=== PATIENT | male | born 1940 | race Caucasian/White ===

== ENCOUNTER 2020-02-26 15:20 | Observation (INO) | payer OTHER, MEDICAID, SELFPAY ==
[2020-02-26 15:30] VITALS: BP 142/81; PULSE 78; RESP 16; TEMP 36.8; O2SAT 95; BMI 23.1
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
--- NOTE | 2020-02-26 16:31 | ED_ITS ---
HPI - Psych General Chief Complaint: Psychiatric Symptoms Stated Complaint: Dementia Time Seen by Provider: 02/26/20 16:27 Source: patient and police Mode of arrival: other (Police) Limitations: other (Dementia) History of Present Illness HPI Narrative: Much of the HPI was provided by the BREANNA form filled out by pilar thorne. It is reported that the patient lives at the local assisted living facility. The police were called when the individual was found outside on the road waving at cars that are passing by and yelling and drivers. Further information was provided again by police who stated that they were told by the patient's living facility that he has been aggressive. Concerns at potentially his dementia has been worsening. There were reports made by individuals that the patient did state that he was trying to kill himself. There were statements the patient was trying to jump in front of cars in order to do this. At the time my evaluation patient denied any suicidal ideation. He reported no complai nts. Related Data Allergies Allergy/AdvReac Type Severity Reaction Status Date / Time No Known Drug Allergies Allergy Verified 02/26/20 15:45 Review of Systems Constitutional Constitutional: Denies fever(s) Cardiovascular Cardiovascular: Denies chest pain and Denies dyspnea Respiratory Respiratory: Denies dyspnea Gastrointestinal Gastrointestinal: Denies abdominal pain Musculoskeletal Musculoskeletal: Denies arthralgias Integumentary/Breasts Skin/Breast: Denies rash Neurologic Neurologic: Reports behavioral changes (Reported by police/living facility) Psychiatric Psychiatric: Reports behavioral changes (Reported by police/living facility), Denies homicidal ideation and Denies suicidal ideation Patient History Medical History Dementia (Acute) Social History Smoking Status: Former smoker Smoking Status: Former smoker alcohol intake frequency: 0-2 drinks per day Substance Use Type: does not use Exam Initial Vital Signs Initial Vital Signs: Vital Signs Temperature 98.2 F 02/26/20 15:30 Pulse Rate 78 02/26/20 15:30 Respiratory Rate 16 02/26/20 15:30 Blood Pressure 142/81 H 02/26/20 15:30 Pulse Oximetry 95 02/26/20 15:30 Const General: cooperative, comfortable, well developed and well groomed HENGA Head: normal to inspection and normocephalic Resp Effort & Inspection: normal respiratory effort Auscultation: clear to auscultation bilaterally Cardio Rate: regular rate Rhythm: regular rhythm GI Inspection: non-distended Palpation: soft Skin Lesions: no lesions Rashes: no rashes Neuro General: patient alert and patient awake Speech: speech normal Gait: normal gait Motor: no movement abnormalities noted Extrem General: normal to inspection, capillary refill normal and No edema Psych Appearance: well kempt Speech and Movement: speech clear Mood: not manic, not labile and No angry Affect: normal affect Attitude: cooperative Thought Content: no homicidality and suicidality Scores GCS Blanca coma scale eye opening: Spontaneous [place] coma scale verbal response: Orientated (Oriented to person, place, time, date, year) Blanca coma scale motor response: Obey commands [place] coma scale total score: 15 Course Orders Ordered: ED Orders 02/26/20 16:19 [place] [facility] [place] Stat 02/26/20 16:32 Consult to [facility] Complaint Investigator Stat EKG-12 Lead Stat 02/26/20 16:33 CT head/brain wo con Stat 02/26/20 16:42 Urinalysis and Microscopic Stat Urine Drug Screen, Rapid Stat 02/26/20 17:01 Acetaminophen Stat Ammonia (NH3) Stat Complete Blood Count AUTO DIFF Stat Comprehensive Metabolic Panel Stat Ethanol (ETOH) Stat Lipase Stat Salicylate Stat Thyroid Stimulating Hormone Stat Vital Signs Vital signs: Vital Signs - 8 hr 02/26/20 15:30 Temperature 98.2 F Pulse Rate 78 Respiratory Rate 16 Blood Pressure 142/81 H Pulse Oximetry 95 MDM - Psych Lab Data Attestation: I reviewed the patient's lab results. Result diagrams: 02/26/20 17:01 02/26/20 17:01 Labs: Lab Results 02/26/20 02/26/20 02/26/20 Range/Units 16:42 16:42 17:01 WBC 9.9 (4.5-11.0) X10^3/uL RBC 4.69 (4.5-5.9) X10^6/uL Hgb 14.2 (13.5-17.5) g/dL Hct 42.0 (41-53) % MCV 89.6 (80-100) fL MCH 30.3 (26-34) PG MCHC 33.8 (30-36) % RDW 13.6 (11.6-14.8) % Plt Count 246 (150-400) X10^3/uL Neut % (Auto) 73.5 (50-75) % Lymph % (Auto) 19.3 L (25-40) % [place] % (Auto) 6.1 (3-14) % Eos % (Auto) 0.6 L (2-4) % Baso % (Auto) 0.5 (0-2) % Neut # (Auto) 7300 H (5528-8555) /uL Lymph # (Auto) 1900 (5511-6810) /uL [place] # (Auto) 600 (0-900) /uL Eos # (Auto) 100 (0-450) /uL Baso # (Auto) 100 (0-100) /uL Sodium (137-145) mmol/L Potassium (3.4-5.1) mmol/L Chloride (98-107) mmol/L Carbon Dioxide (22-32) mmol/L BUN (9-20) mg/dL Creatinine (0.66-1.25) mg/dL Estimated GFR (>60) mL/min BUN/Creatinine Ratio (6-22) Glucose (80-110) mg/dL Calcium (8.4-10.2) mg/dL Total Bilirubin (0.2-1.3) mg/dL AST (17-59) IU/L ALT (<50) IU/L Alkaline Phosphatase (38-126) U/L Ammonia (9-30) umol/L Total Protein (6.3-8.2) g/dL Albumin (3.5-5.0) g/dL Globulin (1.7-4.1) g/dL Albumin/Globulin Ratio (1.0-2.8) Lipase (23-300) U/L TSH (0.47-4.68) uIU/mL Urine Color Yellow Urine Appearance Clear Urine pH 5.0 (4.5-8.0) Ur Specific [place] 1.020 (1.000-1.035) Urine Protein Negative (Negative) Urine Glucose (UA) Negative (Negative) g/dL Urine Ketones Negative (NEGATIVE) Urine Occult Blood 1+ H (Negative) Urine Nitrate Negative (Negative) Urine Bilirubin Negative (NEGATIVE) Urine Urobilinogen 0.2 (0.2) E.U./dL Ur Leukocyte Esterase Negative (NEGATIVE) Salicylates (<20) mg/dL U Opiates 300ng/mL cut Negative (Negative) Ur Oxycodone Screen Negative (Negative) Urine Methadone Screen Negative (Negative) Acetaminophen (10-30) ug/mL Ur Barbiturates Screen Negative (Negative) U Tricyclic Antidepress Negative (Negative) Ur Phencyclidine Scrn Negative (Negative) Ur Amphetamines Screen Negative (Negative) U Methamphetamines Scrn Negative (Negative) Ur MDMA Scrn (Ecstasy) Negative (Negative) U Benzodiazepines Scrn Negative (Negative) Urine Cocaine Screen Negative (Negative) U Marijuana (THC) Screen Negative (Negative) Ethyl Alcohol ( - 10) mg/dL 02/26/20 02/26/20 02/26/20 Range/Units 17:01 17:01 17:01 WBC (4.5-11.0) X10^3/uL RBC (4.5-5.9) X10^6/uL Hgb (13.5-17.5) g/dL Hct (41-53) % MCV (80-100) fL MCH (26-34) PG MCHC (30-36) % RDW (11.6-14.8) % Plt Count (150-400) X10^3/uL Neut % (Auto) (50-75) % Lymph % (Auto) (25-40) % [place] % (Auto) (3-14) % Eos % (Auto) (2-4) % Baso % (Auto) (0-2) % Neut # (Auto) (9642-8870) /uL Lymph # (Auto) (7320-9311) /uL [place] # (Auto) (0-900) /uL Eos # (Auto) (0-450) /uL Baso # (Auto) (0-100) /uL Sodium 138 (137-145) mmol/L Potassium 4.0 (3.4-5.1) mmol/L Chloride 101 (98-107) mmol/L Carbon Dioxide 29 (22-32) mmol/L BUN 23 H (9-20) mg/dL Creatinine 1.08 (0.66-1.25) mg/dL Estimated GFR > 60.0 (>60) mL/min BUN/Creatinine Ratio 21.3 (6-22) Glucose 98 (80-110) mg/dL Calcium 9.7 (8.4-10.2) mg/dL Total Bilirubin 0.8 (0.2-1.3) mg/dL AST 30 (17-59) IU/L ALT 12 (<50) IU/L Alkaline Phosphatase 99 (38-126) U/L Ammonia < 9 L (9-30) umol/L Total Protein 8.5 H (6.3-8.2) g/dL Albumin 4.5 (3.5-5.0) g/dL Globulin 4.0 (1.7-4.1) g/dL Albumin/Globulin Ratio 1.1 (1.0-2.8) Lipase 181 (23-300) U/L TSH 2.93 (0.47-4.68) uIU/mL Urine Color Urine Appearance Urine pH (4.5-8.0) Ur Specific [place] (1.000-1.035) Urine Protein (Negative) Urine Glucose (UA) (Negative) g/dL Urine Ketones (NEGATIVE) Urine Occult Blood (Negative) Urine Nitrate (Negative) Urine Bilirubin (NEGATIVE) Urine Urobilinogen (0.2) E.U./dL Ur Leukocyte Esterase (NEGATIVE) Salicylates < 1.0 (<20) mg/dL U Opiates 300ng/mL cut (Negative) Ur Oxycodone Screen (Negative) Urine Methadone Screen (Negative) Acetaminophen < 10 L (10-30) ug/mL Ur Barbiturates Screen (Negative) U Tricyclic Antidepress (Negative) Ur Phencyclidine Scrn (Negative) Ur Amphetamines Screen (Negative) U Methamphetamines Scrn (Negative) Ur MDMA Scrn (Ecstasy) (Negative) U Benzodiazepines Scrn (Negative) Urine Cocaine Screen (Negative) U Marijuana (THC) Screen (Negative) Ethyl Alcohol < 10 ( - 10) mg/dL Imaging Data CT scan - head: Radiologist's Impression: [address] [address] [address] Scan Report Signed Patient: Scott LeonMR#: [id number] : 1940Acct:[id number] Age/Sex: 79 / MDate of Service: 02/26/20 Loc: ED Accession Number: [id number] Procedure: CT head/brain wo con Ordering Provider: Dawit Francisco D.O. PROCEDURE: CT HEAD/BRAIN WO CON INDICATIONS: Altered mental status TECHNIQUE: Noncontrast 4.5 mm thick angled axial sections acquired from the foramen magnum to the vertex, with coronal and sagittal reformats. For radiation dose reduction, the following was used: automated exposure control, adjustment of mA and/or kV according to patient size. COMPARISON: Outside Film, CT, CT HEAD WITHOUT CONTRAST, 02/23/2016, 15:04. FINDINGS: Image quality: Excellent. CSF spaces: Basal cisterns are patent. No extra-axial fluid collections. The ventricles are symmetric in size and shape. Brain: No intracranial bleeds or masses. There is cerebral volume loss for age, with resultant ventricular and sulcal prominence. There are periventricular and deep white matter chronic small vessel ischemic changes. There is intracranial internal carotid artery atherosclerosis. Skull and face: Calvarium and visualized facial bones appear intact, without suspicious lesions. Sinuses: Visualized sinuses and mastoids are clear. IMPRESSION: No CT evidence of acute intracranial pathology. No significant changes from previous study. Dictated by: Ti Moon M.D. on 02/26/2020 at 17:03 Approved by: Ti Moon M.D. on 02/26/2020 at 17:04 ECG Data Attestation: I personally reviewed and interpreted this ECG as follows: Prior ECG tracings: not available for review Interpretation: Sinus rhythm Normal axis Ventricular rate is 76 Normal QRS Normal QTC No ST T wave changes MDM Narrative Medical decision making narrative: Patient has no signs of trauma, head CT is unremarkable, EKG is unremarkable, not clinically intoxicated, patient does have a GCS of 15. He is oriented to person place year in his date. He states he has a little unsure as to why he is here in the emergency department. He does state that he does not know where he currently lives. He states he has not lived in ?my house? for ?many years? although he did know the address to his prior home. There is no signs of trauma. Patient denies suicidality. A PROTECTION AGENT consult was placed to help with the situation. Care turned over to night pro vider at change of shift to follow up.
[2020-02-26 17:10] LABS: Add Manual Diff / Slide Review NO; Basophils Absolute Auto 100 /uL (0-100); Basophils Percent Auto 0.5 % (0-2); Eosinophils Absolute Auto 100 /uL (0-450); Eosinophils Percent Auto 0.6 % (2-4); Hemoglobin 14.2 g/dL (13.5-17.5); Lymphocytes Absolute Auto 1900 /uL (1100-4500); Lymphocytes Percent Auto 19.3 % (25-40); Mean Corpuscular HGB Conc 33.8 % (30-36); Mean Corpuscular Hemoglobin 30.3 PG (26-34); Mean Corpuscular Volume 89.6 fL (80-100); Monocytes Absolute Auto 600 /uL (0-900); Monocytes Percent Auto 6.1 % (3-14); Neutrophils Absolute Auto 7300 /uL (1500-7000); Neutrophils Percent Auto 73.5 % (50-75); Platelet Count 246 X10^3/uL (150-400); Red Blood Cell Count 4.69 X10^6/uL (4.5-5.9); Red Cell Distribution Width 13.6 % (11.6-14.8); White Blood Cell Count 9.9 X10^3/uL (4.5-11.0)
[2020-02-26 17:18] LABS: Ur Creatinine Normal (Normal); Ur Specific Gravity Normal (Normal); Urine pH Normal (Normal)
[2020-02-26 17:19] LABS: UR Morphine/Opiate cutoff 300 Negative (Negative); Urine Amphetamines Negative (Negative); Urine Barbiturates Negative (Negative); Urine Benzodiazepines Negative (Negative); Urine Cocaine Negative (Negative); Urine MDMA Negative (Negative); Urine Methadone Negative (Negative); Urine Methamphetamines Negative (Negative); Urine Oxycodone Negative (Negative); Urine Phencyclidine Negative (Negative); Urine Tetrahydrocannabinol Negative (Negative); Urine Tricyclic Antidepressant Negative (Negative)
[2020-02-26 17:22] LABS: Acetaminophen < 10 ug/mL (10-30); Alanine Aminotransferase 12 IU/L (<50); Albumin 4.5 g/dL (3.5-5.0); Albumin Globulin Ratio 1.1 (1.0-2.8); Alkaline Phosphatase 99 U/L (38-126); Ammonia (NH3) < 9 umol/L (9-30); Aspartate Aminotransferase 30 IU/L (17-59); BUN Creatinine Ratio 21.3 (6-22); Bilirubin Total 0.8 mg/dL (0.2-1.3); Blood Urea Nitrogen 23 mg/dL (9-20); Calcium 9.7 mg/dL (8.4-10.2); Carbon Dioxide 29 mmol/L (22-32); Chloride 101 mmol/L (98-107); Estimated Glomerular Filt Rate > 60.0 mL/min (>60); Ethanol (ETOH) < 10 mg/dL; Glucose 98 mg/dL (80-110); HEMOLYSIS < 15 (0-50); Lipase 181 U/L (23-300); Salicylate < 1.0 mg/dL (<20); Sodium 138 mmol/L (137-145); Total Protein 8.5 g/dL (6.3-8.2)
[2020-02-26 17:59] LABS: Thyroid Stimulating Hormone 2.93 uIU/mL (0.47-4.68)
[2020-02-26 18:33] LABS: Bacteria Urine None Seen
[2020-02-26 18:35] LABS: Appearance Urine UA CLEAR; Bilirubin Urine UA NEGATIVE (NEGATIVE); Color Urine UA YELLOW; Glucose Urine UA NEGATIVE (Negative); Ketones Urine UA NEGATIVE (NEGATIVE); Leukocyte Esterase Urine UA NEGATIVE (NEGATIVE); Nitrite Urine UA NEGATIVE (Negative); Occult Blood Urine UA 1+ (Negative); Protein Urine UA NEGATIVE (Negative); Urobilinogen Urine UA 0.2 E.U./dL (0.2)
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
[2020-02-26 18:43] LABS: Culture Indicated Urine Cult Not Indicated; RBC Urine 0-1/HPF (0-5/HPF); Squamous Epithelial Cell Urine 0-1 /HPF (0-5/HPF); WBC Urine 0-1/HPF (0-5/HPF)
[2020-02-26] MEDS: haloperidoL 1 MG TABLET 2 MG PO (19:25)
[2020-02-26 21:12] VITALS: BMI 23.1
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
[2020-02-27 01:03] VITALS: BP 167/77; PULSE 75; RESP 16; TEMP 36.4; O2SAT 99
--- NOTE | 2020-02-27 04:08 | PC.NURSE ---
Patient has remained 1:1 observation this shift due to elopement risk. Patient gets up independently to go to the bathroom. Was pleasant and cooperative , stated he thinks he will go back to sleep. Thanked me for helping over him up. Denies pain.
[2020-02-27 07:48] VITALS: BP 139/72; PULSE 69; RESP 16; TEMP 37.1; O2SAT 97
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
[2020-02-27] MEDS: MEMANTINE HCL 5 MG TABLET 10 MG PO ×2 (08:14→21:35)
[2020-02-27] MEDS: ATORVASTATIN 20 MG TABLET 40 MG PO (08:15)
[2020-02-27 10:15] VITALS: BMI 23.1
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
[2020-02-27 18:44] VITALS: BP 170/90; PULSE 72; RESP 16; TEMP 36.5; O2SAT 98
--- NOTE | 2020-02-27 22:07 | PC.NURSE ---
18:30- This MACHINE CLEANER walked 1:1 with patient throughout the hallways for almost 2 hours. Pt would occasionally sit, but would then want to walk stating, I walk 3 miles everyday. 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 0 - Pt was given a pudding and fruit cup. Also given a Pepsi at patient request. Pt stated, I don't want to be left alone. He further asked multiple times where he was and what would happen to him. Pt became sad and cried a few times. This MACHINE CLEANER reassured the patient that he was at [facility] and that he was safe and that doctors and nurses were all here to help him. This MACHINE CLEANER notified RN of increased sadness and confusion. 2209- Pt ambulated himself from the bedside chair to the bed. Pt was given a warm blanket. Pt is currently sleeping. Bed alarm is on, lights are off and this MACHINE CLEANER is outside his door as a 1:1 with visual contact.
--- NOTE | 2020-02-27 22:53 | PC.NURSE ---
2229- Patient remains cooperative but is very forgetful. Patient does not understand why he is in the hospital and has no recall of how he got here. Patient is impulsive and labile emotionally. He will spontaneously start crying but then forget why. Patient taking po well but does not drink water. Patient prefers coffee or pepsi. Will monitor.
[2020-02-28 00:05] VITALS: BP 178/85; PULSE 65; RESP 16; TEMP 36; O2SAT 99
[2020-02-28 07:20] VITALS: BP 124/76; PULSE 72; RESP 16; TEMP 36.7; O2SAT 97
--- NOTE | 2020-02-28 07:56 | PC.NURSE ---
Pt has 1:1 observation. Pt has gotten up and walked to the door multiple times to talk to me about concerns on feeling dizzy. I talked to him about eating some food or drinking some juice or sitting up a little bit to help with the dizzy feeling. He stated that he is not hungry and he just wants to lay down and doesn't really feel like talking or having me near by but wants to let me know that he still feels dizzy and will keep telling me that till he feels better.
--- NOTE | 2020-02-28 08:11 | P.PN_ITS ---
Subjective Subjective Date Patient Seen: 02/28/20 Interval history: Mr. Scott Leon is an 79-year-old male with a medical history only significant for early onset Alzheimer's who was brought in by [employer] police after attempting to jump in front of a car. Patient was in the process of being admitted to [facility], and became confused about what was happening and stated that he did this to get away from people at the time. He does not currently remember yesterday's events. Discussions with the patient's are often cyclical about his son possibly taking his Ollie. He has significant short term memory impairment. He currently denies any complaints. There is no acute medical issue for his behavior that has been found other than his progressive dementia. Patient is currently admitted pending placement. Exam Vital Signs (past 8 hours): - 02/28/20 07:20 Temperature 98.0 F Pulse Rate 72 Respiratory Rate 16 Blood Pressure 124/76 Pulse Oximetry 97 Oxygen Delivery Method Room Air Oxygen Flow Rate 0 Narrative Exam Narrative: GENERAL APPEARANCE: Disheveled somewhat unkempt elderly male who is adequately nourished and in no acute distress. HEENT: Normocephalic, PERRLA, conjunctiva clear, case tract bilaterally, no nystagmus, no rhinorrhea, mucous membranes are moist and pink. NECK/THYROID: neck supple, no JVD, trachea midline. SKIN: [place], warm and dry. HEART: regular rate and rhythm, S1-S2, no murmur, no rubs or gallops, brisk capillary refill, no edema LUNGS: clear to auscultation bilaterally, no coarseness crackles or wheezing, moist nonproductive cough present. CHEST: Symmetrical movement, no accessory muscle use, good tidal volume. ABDOMEN: Soft, no distention, no abdominal tenderness, no organomegaly, active bowel tones. BACK: Thoracic kyphosis, nontender to palpation, no CVA tenderness on percussion. EXTREMITIES: Bruising to the dorsum of the right hand, moves all extremities, strength is 5/5 and symmetrical, no deformities or joint effusions. NEUROLOGIC: AAO, point to person only, no focal neurologic deficits, cranial nerves II-XII grossly intact, sensation intact to light touch, hearing grossly normal to speech. PSYCH: Severely impaired memory, poor insight, thought is circular, mildly anxious, restless. Objective Labs Result Diagrams: 02/26/20 17:01 02/26/20 17:01 Assessment & Plan Assessment & Plan narrative: This is an 79-year-old male patient who is unable to return to his prior care setting due to the severity of his disability. Social work has been working with Jovani Salazartman, the patient's POA regarding placement. He is unable to come pick the patient up. Patient is admitted for safety due to grave debility. 1. Early onset Alzheimer's dementia, chronic, present on admission, active. -the patient has severely impaired memory circular thinking is confused and disoriented. -apparently patient's was previous his caregiver and she is presently in the hospital in [place]. -the patient is too disabled to return to his previous care setting at [facility]. -social sciences professor has consulted is been working to identify resources in placement and had been waiting communication from the patient's POA. -no factor resources have been found the patient is admitted to the hospital for supportive environment to prevent injury and harm. -will continue memantine 10 mg twice daily. -appreciate social work interventions. Will likely need COVID-19 testing once placement has been found. 2. Hyperlipidemia, chronic, stable. -will continue atorvastatin 40 mg daily. The patient is admitted to the hospital as observation status due to the severity of his disability and risk to safety and prevent harm. He is medically stable for discharge once placement is found.
[2020-02-28] MEDS: ATORVASTATIN 20 MG TABLET 40 MG PO (08:56)
[2020-02-28] MEDS: MEMANTINE HCL 5 MG TABLET 10 MG PO ×2 (08:57→20:49)
--- NOTE | 2020-02-28 11:27 | PC.NURSE ---
Addendum entered by Corinne Hough R.N. 02/28/20 14:48: delivered by a neighbor, THERESE WEBB, a warm winter coat and his ghada- she chose not to visit pt Addendum entered by Corinne Hough R.N. 02/28/20 14:04: pt c/o dizziness but stable on feet during ambulation- wishing to go home Original Note: PT CONTINUES TO BE CONFUSED AND REPEATING HIS STORIES OVER AND OVER- HE IS EASILY REDIRECTED AND CAN FEED AND TOILET HIMSELF- NO IV LINES AT THIS TIME AND AWAITING SECURE AND SAFE DISPOSTION
--- NOTE | 2020-02-28 15:36 | CM.DPC ---
DCP Memory Care Placement Per MD, pt remains medically stable for discharge once safe LTC placement plan secured. Per RN, pt remains mostly independent with ambulation and most ADL's but needs regular reminders and cueing for hygiene and self care and has 1:1 due to pt's risk for wandering as pt likes to walk the halls. Pt calm and cooperative without behaviors but at times becomes tearful and repetitive. Pt has excellent remote computer terminal operator memory but very poor short term memory. [facility] called pt's [facility] Community CM Victoria Velasquez [phone] and updated on pt status and his needs and Victoria states she plans to update pt's assessment to show his higher level of need now that pt needs higher level of care than Assisted Living. Victoria plans to complete by this evening so that its ready to fax to Memory Care Units once [facility] finds facilities with openings willing to review. The following Medicaid Memory Care Units attempted yesterday and today: [facility] [place]- [facility] beds [facility] P# [phone]- [facility] beds [facility] P# [phone]- No beds [facility] P# [phone]- Had to [facility] [place] P# [phone]- No beds [facility]: no beds and waitlist already [facility]: [facility] [place]: only private pay [place] [facility]: Memory Care full [address] [place]: not taking new admits [facility] [place]: no beds, full [facility]: no beds, full [facility]: no beds, full [facility]: left msg [facility]: [phone] phone has openings but requests HCS assessment and daily rate and some hospital clinicals to review. Faxed hospital clinicals to #[phone] and Victoria will send HCS assess tonight. [facility] [place] [facility]: [phone] phone admissions Marie has openings and willing to review if pt is approved for Specialty pay ($109 plus hospital add on pay). [facility] faxed clinicals to fax #[phone] to review and confirmed with Victoria that she will send request for pt to be approved for Specialty Dementia Unit and does not anticipate this will be a problem and will fax [facility] assess tonight. Pt's neighbor friend Beth Howell ([phone]) arrived to bring some of pt's belongings and his Ollie as pt is an avid reader. Beth confirms that there is a No-contact order between pt and his son (as son being investigated for taking advantage of vulnerable pt and spouse) and that Guardian Jovani Rivera is pt's brother inlaw and guardian for spouse. Plan: SW to follow for [facility] and [facility] at [facility] to review pt after Victoria from [facility] faxes updated [facility] assessment with daily rate to those two facilities. DIPTI Lin
[2020-02-28 16:45] VITALS: BP 162/86; PULSE 72; RESP 18; TEMP 36.5; O2SAT 100
--- NOTE | 2020-02-28 17:20 | PC.NURSE ---
Addendum entered by Allison Dumont R.N. 02/28/20 21:08: 2100- Patient is getting more agitated and insistent on leaving. Patient harder to redirect, is having some pressured speech and combative speech. Will monitor. Original Note: 1700- Patient very emotionally labile today. Since the beginning of Shanta shift he has been mostly crying. Dr. Lara aware. Patient has very poor recall and at times is agitated. Patient can be easily redirected. Patient turned off the room monitor as he has very low alarm tolerance. No bed alarm or chair alarm as these increase his fear and agitation. Will monitor.
[2020-02-28] MEDS: MELATONIN 3 MG TABLET 6 MG PO (20:49)
[2020-02-28] MEDS: QUETIAPINE 25 MG TABLET 50 MG PO (21:30)
--- NOTE | 2020-02-28 22:55 | PC.NURSE ---
2014- Pt became more agitated and kept saying, I want to leave. Pt was unsteady on his feet. Pt also became verbally combative. Security walked the halls with this HOSPITAL FOOD SERVICE WORKER and pt. Pt had gait belt on and was unsteady on his feet and also sat and called 911 two times. 2244 - Pt is currently seated in a wheelchair in his room talking with oncoming HOSPITAL FOOD SERVICE WORKER. Pt is now laughing and appears to be much more calm. 2299 - Pt is becoming agitated again.
[2020-02-29 00:06] VITALS: BP 154/102; PULSE 81; RESP 20; TEMP 37.3; O2SAT 95
--- NOTE | 2020-02-29 03:24 | PC.NURSE ---
Addendum entered by Alena Cardoza R.N. 02/29/20 06:48: Patient remains asleep, has been up to BR with SBA few times, goes back to bed without incident. Original Note: 0015-Upon resuming care of patient at change of shift, he has called 911 x1, talked with dispatcher, and policeman came in to speak with him as well. Everyone is calm with him and giving reassurance he is safe. He continually want to leave disoriented to place, time, and situation. Seroquel and Melatonin given by evening shift RN, he is starting to get drowsy, says I'm dizzy and sick 1:1 sitter able to direct him into his room, into BR, and then to bed. VS obtained but editor news not obtained at this time due to agitation. Bed alarm on, curtain open for full view of patient.
--- NOTE | 2020-02-29 08:46 | PC.NURSE ---
Day shift: Pt up OOB at shift change to use BR. Pt back in bed and sleeping. 1 to 1 NITRATE OPERATOR in use. No s/s of pain or discomfort. Awaiting placement to a facility.
--- NOTE | 2020-02-29 10:16 | PC.NURSE ---
0715 Pt sleeping after ambulating standby assist to bathroom.0830 and 0910 pt repositioned self and continued to sleep. 1000 pt stirred briefly during rounds stating they woke me up Settled quickly back to sleep laying on right side.
--- NOTE | 2020-02-29 12:14 | CM.DPC ---
Ongoing Memory Care Placement Per RN, pt remains stable and independent with ambulation and has been sleeping this morning. SW attempted to call the two Memory Care Units that had openings and willing to review: [facility]: no admissions over the weekend and they confirmed that fax was received from [facility] and Victoria from [facility] with updated assessment but SW will need to call Monday to speak with admissions to determine if they can accept. [facility]: no admissions staff over the weekend, left [facility]. SW attempted to call multiple other Memory Care Units on the list but no admissions staff on the weekend. SW did receive a faxed copy of pt's updated Home and Community Assessment from [facility] in order to be able to fax the assessment to other Memory Care Units with openings if needed on Monday. Plan: SW to follow closely Monday for calling two above Memory Care Units and additional facilities on the list when administrators are back in the office at their buildings Monday. DIPTI Lin
--- NOTE | 2020-02-29 13:50 | PC.NURSE ---
Day shift: Pt awake and FIRE EQUIPMENT OPERATOR asked him if OK to get a set of vital signs and he refused and said he wanted to go back to sleep. Bed alarm on. Curtain aside for line of site and FIRE EQUIPMENT OPERATOR is doing well . Call light in reach.
[2020-02-29 13:54] VITALS: RESP 18
[2020-02-29 16:10] VITALS: BP 100/58; PULSE 83; RESP 18; TEMP 36; O2SAT 99
--- NOTE | 2020-02-29 16:47 | P.PN_ITS ---
Subjective Subjective Date Patient Seen: 02/29/20 Interval history: Mr. Scott Leon is an 79-year-old male with a medical history only significant for early onset Alzheimer's who was brought in by [email or web address] police after attempting to jump in front of a car. Patient was in the process of being admitted to [facility], and became confused about what was happening and stated that he did this to get away from people at the time. He is currently pending placement in a locked dementia unit. Patient noted to have very impaired short-term memory not recalling immediate conversations. He was getting increasingly agitated last night and received dose of Seroquel around 9:00 p.m. but did not fall asleep until around 1:30 a.m.. He was dozing off much of the day but this afternoon has been appearing depressed and sobbing. Exam Vital Signs (past 8 hours): - 02/29/20 13:54 02/29/20 16:10 Temperature 96.8 F L Pulse Rate 83 Respiratory Rate 18 18 Blood Pressure 100/58 L Pulse Oximetry 99 Oxygen Delivery Method Room Air Oxygen Flow Rate 0 Objective Labs Result Diagrams: 02/26/20 17:01 02/26/20 17:01 Assessment & Plan Assessment & Plan narrative: This is an 79-year-old male patient who is unable to return to his prior care setting due to the severity of his disability. Social work has been working with Jovani Rivera, the patient's POA regarding placement. Patient is admitted for safety due to grave debility. 1. Alzheimer's dementia with behavioral disturbance, chronic, present on admission, active. -the patient has severely impaired memory circular thinking is confused and disoriented. -apparently patient's was previous his caregiver and she is presently in the hospital in [place]. -the patient is too disabled to return to his previous care setting at [facility]. -social research assistant has consulted is been working to identify resources in placement and had been waiting communication from the patient's POA. -no factor resources have been found the patient is admitted to the hospital for supportive environment to prevent injury and harm. -his memantine was increased to 10 mg twice daily. -appreciate social work interventions. Will likely need COVID-19 testing once placement has been found. -noted to have nighttime agitation and has been crying, started Seroquel to address behavioral disturbance and acute depression -provide Seroquel 50 mg q.p.m. and monitor affect and behavioral status 2. Hyperlipidemia, chronic, stable. -will continue atorvastatin 40 mg daily. The patient is admitted to the hospital as observation status due to the severity of his disability and risk to safety and prevent harm. He is medically stable for discharge once placement is found.
[2020-02-29] MEDS: QUETIAPINE 25 MG TABLET 50 MG PO (17:00)
--- NOTE | 2020-02-29 21:55 | PC.NURSE ---
1600- Patient up to chair, crying. Patient has been sleeping most of today but now is awake and tearful. Patient does not understand why he is hospitalized. Patient continues to want to leave to go to his home in [facility]. Discussed emotional lability with Dr. Vides and orders rec. Will monitor.
--- NOTE | 2020-03-01 02:19 | PC.NURSE ---
0100- Patient woke long enough to get oob and go to the bathroom. Gait steady. Patient declined vitals and was assisted back to bed. Will monitor.
--- NOTE | 2020-03-01 04:35 | PC.NURSE ---
Addendum entered by Judie Beyer R.N. 03/01/20 11:59: Pt continues with 1:1 staffing. Becoming agitated at times, but with consistent staffing, Pt is redirectable. No further episodes of crying, or tearful episodes noted. Ambulating in [place] with staff assist. Declined AM meds. Will continue to reapproach. Addendum entered by Judie Beyer R.N. 03/01/20 10:41: Pt is A/o to self only. Pleasant and cooperative with care, very forgetful. Recall of greater than 5 minutes is poor. Recognizes staff, I know you don't I? Needing very frequent cues about living situation and if family is still alive. Continue to reorient and provide 1:1 supervision for safety. Original Note: 0330-Assumed care of Pt, who remains with 1:1 supervision for safety. Resting comfortably, no concerns reported during rounding. Denies pain, RA, no IV. Does report mild dizziness with ambulation, SBA provided. Declines physical exam at this time. Reassured and comfort measures provided.
[2020-03-01 07:28] VITALS: BP 147/78; PULSE 86; RESP 19; TEMP 36.8; O2SAT 98
[2020-03-01 11:07] VITALS: BP 120/88; PULSE 54; RESP 15; TEMP 36.4; O2SAT 100
--- NOTE | 2020-03-01 14:32 | PM.PN.1 ---
Subjective Subjective Date Patient Seen: 03/01/20 Interval history: Mr. Scott Leon is an 79-year-old male with a medical history only significant for early onset Alzheimer's who was brought in by [employer] police after walking in traffic and stepping in front of a truck. Patient was in the process of being admitted to [facility], and became confused about what was happening and stated that he did this to get away from people at the time. He is currently pending placement in a locked dementia unit. Patient received Seroquel at around 5:00 p.m. yesterday and slept well through the night. He has not been agitated or sobbing today. He has difficulty recalling past events although knows he is in the hospital and could figure out month and date by looking at the white board. He knows he is in the hospital but had to think quite a while to remember he is in [place]. He has significant difficulty putting events together and seems to be trying hard to make sense of everything. He states he wishes to go back to his house although he seems unsure if his house has been taken away from him. However, he is definitely more cooperative today and mostly willing to go along with whatever plan. Exam Vital Signs (past 8 hours): - 03/01/20 07:28 03/01/20 11:07 Temperature 98.2 F 97.6 F Pulse Rate 86 54 L Respiratory Rate 19 15 Blood Pressure 147/78 H 120/88 Pulse Oximetry 98 100 Oxygen Delivery Method Room Air Oxygen Flow Rate 0 Objective Labs Result Diagrams: 02/26/20 17:01 02/26/20 17:01 Assessment & Plan Assessment & Plan narrative: This is an 79-year-old male patient who is unable to return to his prior care setting due to the severity of his disability. Social work has been working with Jovani Rivera, the patient's POA regarding placement. Patient is admitted for safety due to grave debility. 1. Alzheimer's dementia, chronic, present on admission, active. -the patient has significant impaired memory circular thinking is confused and disoriented. -apparently patient's was previous his caregiver and she is presently in the hospital in [place]. -the patient is too disabled to return to his previous care setting at [facility]. -manager social responsibility has consulted is been working to identify resources in placement and had been waiting communication from the patient's POA. -no factor resources have been found the patient is admitted to the hospital for supportive environment to prevent injury and harm. -his memantine was increased to 10 mg twice daily. -appreciate social work interventions. Will likely need COVID-19 testing once placement has been found. -started Seroquel 50 mg at 5:00 p.m. daily which seems to have helped with nighttime agitation and helped him sleep through the night as well as even out his mood, the Seroquel can be continued as he transitions to new setting but there should be attempt at removal of this medication in a couple of weeks 2. Hyperlipidemia, chronic, stable. -will continue atorvastatin 40 mg daily. The patient is admitted to the hospital as observation status due to the severity of his disability and risk to safety and prevent harm. He is medically stable for discharge once placement is found.
[2020-03-01] MEDS: QUETIAPINE 25 MG TABLET 50 MG PO (16:52)
[2020-03-01 19:00] VITALS: BP 141/97; PULSE 88; RESP 18; O2SAT 98
[2020-03-01] MEDS: MEMANTINE HCL 5 MG TABLET 10 MG PO (20:51)
[2020-03-01] MEDS: MELATONIN 3 MG TABLET 6 MG PO (20:51)
[2020-03-02 02:40] VITALS: BP 137/63; PULSE 77; RESP 20; O2SAT 95
[2020-03-02] MEDS: MEMANTINE HCL 5 MG TABLET 10 MG PO ×2 (08:20→21:43)
[2020-03-02] MEDS: ATORVASTATIN 20 MG TABLET 40 MG PO (08:20)
[2020-03-02 10:00] VITALS: BP 148/67; PULSE 65; RESP 16; TEMP 36.7; O2SAT 99
--- NOTE | 2020-03-02 10:43 | CM.DPC ---
Addendum entered by Bebe Ventura R.N. 03/02/20 14:04: OLAMIDE/Rn called Bianka Ron back at [phone] to check on approval from [facility] for placement of patient to [facility] in [place]. Bianka stated that she sent it in and that she hasn't gotten approval yet but that it is usually back within 24 hours. Bianka stated she would call CM and update us once that approval was had. OLAMIDE/Rn called esau at [facility] [phone] and let her know what was happening and that we are just waiting on approval from [facility]. They are anticipating patient will admit to them tomorrow pending results from [facility]. bebe Ventura RN Original Note: DCP continued: EMR reviewed: OLAMIDE/RN spoke with Bianka Velasquez with [facility] [phone] about patient going to [facility] memory care unit patients working is submitting a urgent request for coverage for locked memory care unit coverage through [facility]. She stated she should know hopefully later today or tomorrow morning. Olamide/Rn called [facility] [phone] and spoke to esau in admissions- they can accept patient and there daily rate is $167.00 which I let Bianka Velasquez with [facility] know and she is working on getting approval through [facility]. Once we have approval with [facility] patient can go tomorrow morning to [facility]. CM/RN will call bianka Velasquez to check on status of approval later this after noon if not heard back by then. Also CM/Rn will call Esau at [facility] to give an update closer to the end of the day once CM has more information. Bebe Ventura RN
--- NOTE | 2020-03-02 12:57 | P.PN_ITS ---
Subjective Subjective Date Patient Seen: 03/02/20 Interval history: Patient is an 79-year-old male with a history of Alzheimer's dementia who was living at [facility]. The patient left the building and walked in front of a car upon learning that he was being moved to a different facility. Today he knows he is at the hospital. He is asking when he can go home. He is asked multiple times for his . He just learned that his was in [place]. We did explain to the patient that we are looking for alternative living arrangement for him as he is unable to return to [facility]. Patient reports he slept well last evening. He has no complaints. He feels he can ambulate in is ready for discharge back home. Exam Vital Signs (past 8 hours): - 03/02/20 10:00 Temperature 98.1 F Pulse Rate 65 Respiratory Rate 16 Blood Pressure 148/67 H Pulse Oximetry 99 Oxygen Delivery Method Room Air Oxygen Flow Rate 0 Narrative Exam Narrative: Pleasant elderly male resting comfortably in no obvious distress Lungs: Clear to auscultation Cardiac exam: Regular rate and rhythm normal S1-S2 Abdomen soft nontender nondistended Extremities: No edema Objective Labs Result Diagrams: 02/26/20 17:01 02/26/20 17:01 Assessment & Plan Assessment & Plan narrative: 79-year-old male with advanced Alzheimer's dementia -at risk for self-harm living independently -will continue to look for placed -patient is deemed unsafe to return to [place] and unsafe for discharge -will continue Seroquel at night -will continue his other usual home meds
--- NOTE | 2020-03-02 14:02 | PC.NURSE ---
Day Shift Note Pt calm and cooperative. Very forgetful and confused, requires frequent reorienting to place and to plan of care. Steady on feet, SBA. One to one observation for safety, pt prone to wander. Walking in halls with staff member often throughout shift. Denies any pain. Independent in shower after set-up, eating meals without issue.
[2020-03-02 15:54] VITALS: BP 176/84; PULSE 64; RESP 16; TEMP 36.8; O2SAT 99
[2020-03-02] MEDS: QUETIAPINE 25 MG TABLET 50 MG PO (17:30)
[2020-03-02] MEDS: MELATONIN 3 MG TABLET 6 MG PO (21:43)
--- NOTE | 2020-03-02 22:25 | PC.NURSE ---
Patient calm and cooperative. Continues to be confused and has short term memory loss. Semi-understands that he will be going to a facility tomorrow, although he states that he wants to go home to [place] and says he is capable of taking care of himself. No IV access or tele.
[2020-03-03 06:00] VITALS: BP 125/74; PULSE 77; RESP 16; TEMP 36.7; O2SAT 98
[2020-03-03 07:37] VITALS: BP 147/70; PULSE 64; RESP 20; O2SAT 97
[2020-03-03 07:40] VITALS: TEMP 36.6
[2020-03-03] MEDS: MEMANTINE HCL 5 MG TABLET 10 MG PO ×2 (09:06→21:04)
[2020-03-03] MEDS: ATORVASTATIN 20 MG TABLET 40 MG PO (09:06)
--- NOTE | 2020-03-03 09:36 | CM.DPC ---
DCP/continued: Reviewed chart. Spoke with Bianka Velasquez this AM re: placement. Bianka reports that she is waiting for state to confirm contract. Per Victoria, patient has been accepted at [facility] in [place] contact is Jen # [phone]. P: Awaiting for contract to be finalized with [facility] and [facility]. Following closely. DIPTI Pack
[2020-03-03 15:33] VITALS: BP 156/79; PULSE 64; RESP 18; TEMP 36.8; O2SAT 97
--- NOTE | 2020-03-03 15:35 | CM.DPC ---
Addendum entered by Valerie Ventura 03/03/20 16:11: Intake paperwork completed by Dr. Jasso and faxed to [facility] at [phone]. KJS Original Note: DCP/continued: Reviewed chart. Made several calls today re: placement of this patient. Spoke with Victoria Velasquez from [facility] community. She reports that contract has been negotiated with [facility], contact is Jen phone# [phone]. Placed call to Jen and she confirms at approximately 1:00pm today that they have come to agreement with the state on accepting this patient. Jen unable to accept patient today. She is requesting that he be discharged in AM tomorrow 03-04-20. Move in documentation received via fax from [facility]. [employer] requested that Dr. Jasso complete today for d/c tomorrow. Patient currently ambulating independently in room. Patient does not appear to need ambulance transport to [facility]. Placed call to Medicaid transport and they report that they do not go that far. Therefore, placed call to guardian/Jovani Rivera # [phone] he reports that if there are no other options he will provide transport. Jovani requesting to pick patient up around 10:00AM tomorrow. Dr. Jasso notified. P: Awaiting completion of paperwork by provider to fax to [facility]. Patient okay to d/c in AM if medically stable. Guardian to provide transport and be here to pick patient up at 10:00AM. DIPTI Pack
--- NOTE | 2020-03-03 15:38 | PM.PN.1 ---
Subjective Subjective Interval history: Patient has no specific complaints. He wants to know when he is going to leave. Explained to him again that he cannot return to his assisted living facility and we will be looking for another facility for him to go to. He at times seems to be able to understand. He has had no difficulty sleeping. He has no further emotional outbursts. Exam Vital Signs (past 8 hours): - 03/03/20 07:40 03/03/20 15:33 Temperature 98 F 98.3 F Pulse Rate 64 Respiratory Rate 18 Blood Pressure 156/79 H Pulse Oximetry 97 Oxygen Delivery Method Room Air Oxygen Flow Rate 0 Narrative Exam Narrative: Pleasant gentleman confused but in no obvious distress Lungs: Clear to auscultation Cardiac exam: Regular rate and rhythm normal S1-S2 Abdomen: Soft nontender Extremities: No edema Objective Labs Result Diagrams: 02/26/20 17:01 02/26/20 17:01 Assessment & Plan Assessment & Plan narrative: 1. Alzheimer's dementia 2. Hyperlipidemia Plan discharge to [place] for a locked Alzheimer's unit tomorrow. Discharge medications are written. Family will drive him to the facility tomorrow.
[2020-03-03] MEDS: QUETIAPINE 25 MG TABLET 50 MG PO (17:53)
[2020-03-03] MEDS: MELATONIN 3 MG TABLET 6 MG PO (21:04)
[2020-03-03 23:10] VITALS: BP 147/90; PULSE 88; RESP 18; TEMP 36.7; O2SAT 99
[2020-03-04 05:30] VITALS: BP 140/68; PULSE 71; RESP 18; O2SAT 99
--- NOTE | 2020-03-04 06:12 | PC.NURSE ---
Extrusion Die Template Maker Note-Patient slept throughout night after 1:1 AFTER SCHOOL PROGRAM DIRECTOR sitter assisted him with HS care. He woke in am at 0500, dressed himself, ambulated to RN station. He is calm and cooperative, but confused to place, time, date, and situation. He thought he was hiding at the mall Easily redirected him back into room, answered all his questions and discussed all his concerns. He is talkative, repeatative, and becomes tearful at moments when he realizes he confused, reassured him. He drank full glasses of milk and juice, was cooperative with vital signs and assessment.
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
[2020-03-04] MEDS: ATORVASTATIN 20 MG TABLET 40 MG PO (08:47)
[2020-03-04] MEDS: QUETIAPINE 25 MG TABLET 50 MG PO (09:00)
[2020-03-04 09:20] LABS: COVID19 -Nasal RAPID Negative (Negative)
[2020-03-04] MEDS: MEMANTINE HCL 5 MG TABLET 10 MG PO (09:30)
--- NOTE | 2020-03-04 09:36 | PC.NURSE ---
Addendum entered by Judie Beyer R.N. 03/04/20 11:13: Pt is d/c to [employer] vehicle transportation to [facility]. All belongings and luggage sent with Patient. PRN Seroquel beneficial for patient who is no longer tearful with each conversation. Original Note: Am shift Assumed care of Pt @ 0700. Pt is exit seeking, tearful, continues to remember family is gone, and he no longer has a home. This brings tears, and then Pt forgets, followed by remembering and a cycle of more tearfulness. Discussed with Dr Becerra, x1 Seroquel given to help with agitation about leaving. Ambulating Pt in halls, redirecting and distraction. Await ride.
--- NOTE | 2020-03-04 11:41 | CM.DPNOTE ---
Addendum entered by Valerie Ventura 03/04/20 11:47: Patient somewhat anxious this AM about leaving. Provider prescribed medication to assist with anxiety and long drive to [place]. KJS Original Note: DCP/continued: Reviewed chart. Spoke with provider this AM and patient is medically stable for discharge. Received call from guardian/Jovani Rivera, he reports that he is unable to pick patient up today but that his friend/Pavel Garcia can. Notified Jovani that this was fine. RN updated. Placed call to [facility], they continue to be agreeable to accept. They received paperwork that was faxed from [facility] yesterday with medications. COVID test also completed and RN instructed to fax result to [facility] when it becomes available. COVID was negative. Notified [facility] of the above. Patient expected to be picked up at approximately 10:00AM. Driving directions printed for Pavel Garcia. No additional needs identified. P: Patient d/c'd to [facility] in [place] today. DIPTI Pack
== END 2020-03-04 11:19 ==
LOC: ED 20:10 → AC 20:10 → ICU 21:00
PROVIDERS: Internal Medicine; Admitting Provider Nurse Practitioner Adult Health; Emergency Provider Emergency Medicine; PCP Family Medicine Sports Medicine; Referring Provider Emergency Medicine; Visit Provider Nurse Practitioner Adult Health
DX: F03.91 Unspecified dementia, unspecified severity, with behavioral disturbance (principal); E78.5 Hyperlipidemia, unspecified; Z11.59 Encounter for screening for other viral diseases; T14.91XA Suicide attempt, initial encounter; Y92.413 State road as the place of occurrence of the external cause
CPT/HCPCS: 36415; 70450; 80053; 80305; 80320; 80329; 81001; 82140; 83690; 84443; 85025; 87635; 93005; 99283; 99284; G0378; G0480